=== PATIENT | male | born 1990 | race Caucasian/White ===

== ENCOUNTER 2016-10-22 16:14 | Emergency (ER) | payer MEDICAID, OTHER ==
[~2016-10-22] VITALS: Ht 175.3 cm; Wt 68.3 kg
[2016-10-22 16:20] VITALS: BP 135/70
[2016-10-22] MEDS ORDERED: TETANUS-DIPTH-ACEL PERTUSSIS 0.5ML SYRG IM ONE (17:30)
== END 2016-10-22 19:02 | disposition home or self-care (01) ==
LOC: ER 16:21
DX: S90.02XA Contusion of left ankle, initial encounter (principal); L03.116 Cellulitis of left lower limb; V00.131A Fall from skateboard, initial encounter; Y93.51 Activity, roller skating (inline) and skateboarding; Y99.9 Unspecified external cause status; Y92.89 Other specified places as the place of occurrence of the external cause; Z23 Encounter for immunization
CPT/HCPCS: 73590; 73610; 90471; 90715

== ENCOUNTER 2016-11-21 08:35 | Emergency (ER) | payer MEDICAID ==
[~2016-11-21] VITALS: Ht 175.3 cm; Wt 68.0 kg
[2016-11-21 09:00] VITALS: BP 125/74
== END 2016-11-21 09:30 | disposition home or self-care (01) ==
LOC: ER 08:35
DX: S80.01XA Contusion of right knee, initial encounter (principal); W19.XXXA Unspecified fall, initial encounter; Y93.89 Activity, other specified; Y99.8 Other external cause status; Y92.89 Other specified places as the place of occurrence of the external cause
CPT/HCPCS: 73562

== ENCOUNTER 2020-03-15 04:25 | Emergency (ER) | payer MEDICAID ==
[~2020-03-15] VITALS: Ht 175.3 cm; Wt 63.5 kg
[2020-03-15 04:35] VITALS: BP 132/89
[2020-03-15] MEDS ORDERED: IBUPROFEN 800 MG TAB PO ONE (06:00)
[2020-03-15] MEDS ORDERED: LIDOCAINE VISCOUS 2% 15ML UD PO ONE (06:00)
== END 2020-03-15 06:04 | disposition home or self-care (01) ==
LOC: ER 04:25
DX: S09.93XA Unspecified injury of face, initial encounter (principal); K08.89 Other specified disorders of teeth and supporting structures; F17.210 Nicotine dependence, cigarettes, uncomplicated; Z88.1 Allergy status to other antibiotic agents; X58.XXXA Exposure to other specified factors, initial encounter; Y93.89 Activity, other specified; Y92.89 Other specified places as the place of occurrence of the external cause; Y99.8 Other external cause status
CPT/HCPCS: 70486